=== PATIENT | male | born 1970 | race Caucasian/White ===

== ENCOUNTER 2024-08-20 10:40 | Emergency (ER) | payer SELFPAY ==
[~2024-08-20] VITALS: Ht 162.6 cm; Wt 50.0 kg
[2024-08-20 10:49] VITALS: TEMP 97.9
[2024-08-20 12:46] LABS: BASO # 0.1 K/mm3 (0.0-0.2); BASO % 1.1 % (0.0-2.0); EOS # 0.4 K/mm3 (0.0-0.7); EOS % 4.4 % (0.0-4.0); GRAN # 5.1 K/mm3 (1.4-6.5); GRAN % 56.2 % (42.2-75.2); HEMATOCRIT 47.6 % (42.0-52.0); HEMOGLOBIN 16.8 g/dl (13.5-18.0); LYMPH # 2.9 K/mm3 (1.2-3.4); LYMPH % 32.4 % (20.0-51.0); MEAN CELL VOLUME 93 fl (80.0-100.0); MEAN CORPUSCULAR HEMOGLOBIN 33 pg (27-31); MEAN CORPUSCULAR HGB CONC 35 g/dl (33.0-37.0); MONO # 0.5 K/mm3 (0.1-0.6); MONO % 5.8 % (1.7-9.3); PLATELET COUNT 305 K/mm3 (130-400); RED BLOOD COUNT 5.12 M/mm3 (4.20-5.60); REDCELL DISTRIBUTION WIDTH-CV 12.5 % (11.5-14.5)
[2024-08-20 12:58] LABS: ALANINE AMINOTRANSFERASE 41 U/L (0-55); ALKALINE PHOSPHATASE 110 U/L (40-150); ANION GAP 13 mmol/L (7-16); AST,SGOT 29 U/L (5-34); BLOOD UREA NITROGEN 14 mg/dL (8-26); CALCIUM 9.7 mg/dL (8.4-10.2); CHLORIDE 104 mEq/L (98-107); CREATININE, serum 0.78 mg/dL (0.72-1.25); GLUCOSE 95 mg/dL (70-99); POTASSIUM 4.3 mEq/L (3.5-4.5); SODIUM 141 mEq/L (136-145); TOTAL PROTEIN 7.8 g/dl (6.2-8.1)
[2024-08-20 13:03] LABS: TROPONIN-I < 0.010 ng/mL (0.00-0.033)
[2024-08-20 13:13] LABS: BILIRUBIN,TOTAL 0.5 mg/dL (0.2-1.2)
[2024-08-20] MEDS ORDERED: PROAIR HFA0.09 MG/AC IH (14:07)
[2024-08-20 14:15] VITALS: BP 137/96; PULSE 78
== END 2024-08-20 14:15 | disposition home or self-care (01) ==
LOC: COL.ER 10:40
PROVIDERS: Emergency Medicine
DX: R06.02 Shortness of breath (principal); R53.83 Other fatigue; M79.10 Myalgia, unspecified site; Z86.73 Personal history of transient ischemic attack (TIA), and cerebral infarction without residual deficits

== ENCOUNTER 2024-08-25 12:55 | Emergency (ER) | payer SELFPAY ==
[~2024-08-25] VITALS: Ht 162.6 cm; Wt 59.1 kg
[~2024-08-25 12:55] MED LIST: PROAIR HFA0.09 MG/AC IH
[2024-08-25 13:15] VITALS: TEMP 98.3
[2024-08-25 16:18] LABS: BASO # 0.1 K/mm3 (0.0-0.2); BASO % 1.1 % (0.0-2.0); EOS # 0.4 K/mm3 (0.0-0.7); EOS % 3.9 % (0.0-4.0); GRAN # 5.1 K/mm3 (1.4-6.5); GRAN % 49.3 % (42.2-75.2); HEMATOCRIT 45.2 % (42.0-52.0); HEMOGLOBIN 15.7 g/dl (13.5-18.0); LYMPH # 4.2 K/mm3 (1.2-3.4); LYMPH % 40.9 % (20.0-51.0); MEAN CELL VOLUME 94 fl (80.0-100.0); MEAN CORPUSCULAR HEMOGLOBIN 33 pg (27-31); MEAN CORPUSCULAR HGB CONC 35 g/dl (33.0-37.0); MEAN PLATELET VOLUME 8.6 fl (7.4-10.4); MONO # 0.5 K/mm3 (0.1-0.6); MONO % 4.7 % (1.7-9.3); PLATELET COUNT 304 K/mm3 (130-400); RED BLOOD COUNT 4.81 M/mm3 (4.20-5.60); REDCELL DISTRIBUTION WIDTH-CV 12.4 % (11.5-14.5)
[2024-08-25 16:42] LABS: ALBUMIN 3.9 g/dL (3.5-5.0); BILIRUBIN,TOTAL 0.3 mg/dL (0.2-1.2); CALCIUM 9.3 mg/dL (8.4-10.2); CREATININE, serum 0.77 mg/dL (0.72-1.25); POTASSIUM 3.9 mEq/L (3.5-4.5); TOTAL PROTEIN 7.4 g/dl (6.2-8.1)
[2024-08-25 16:49] LABS: TROPONIN-I 0.012 ng/mL (0.00-0.033)
[2024-08-25] MEDS ORDERED: PROAIR HFA0.09 MG/AC IH (17:38)
[2024-08-25 17:55] VITALS: BP 164/93; PULSE 89
== END 2024-08-25 17:55 | disposition home or self-care (01) ==
LOC: COL.ER 12:55
PROVIDERS: Physician Assistant
DX: J06.9 Acute upper respiratory infection, unspecified (principal); F17.210 Nicotine dependence, cigarettes, uncomplicated

== ENCOUNTER 2024-09-08 17:34 | Emergency (ER) | payer SELFPAY ==
[~2024-09-08] VITALS: Ht 162.6 cm; Wt 59.1 kg
[2024-09-08 17:36] VITALS: TEMP 97.6
[2024-09-08 18:03] VITALS: BP 132/87; PULSE 92
[2024-09-08] MEDS ORDERED: LR 1,000 ML IV ONE (18:15)
[2024-09-08 19:52] LABS: BASO # 0.1 K/mm3 (0.0-0.2); EOS # 0.3 K/mm3 (0.0-0.7); EOS % 3.5 % (0.0-4.0); GRAN # 4.9 K/mm3 (1.4-6.5); GRAN % 55.3 % (42.2-75.2); HEMATOCRIT 45.6 % (42.0-52.0); HEMOGLOBIN 16.4 g/dl (13.5-18.0); LYMPH # 3.2 K/mm3 (1.2-3.4); LYMPH % 36.4 % (20.0-51.0); MEAN CELL VOLUME 91 fl (80.0-100.0); MEAN CORPUSCULAR HEMOGLOBIN 33 pg (27-31); MEAN CORPUSCULAR HGB CONC 36 g/dl (33.0-37.0); MEAN PLATELET VOLUME 11.3 fl (7.4-10.4); MONO # 0.3 K/mm3 (0.1-0.6); MONO % 3.6 % (1.7-9.3); PLATELET COUNT 279 K/mm3 (130-400); RED BLOOD COUNT 5.03 M/mm3 (4.20-5.60); REDCELL DISTRIBUTION WIDTH-CV 12.3 % (11.5-14.5)
[2024-09-08 20:35] LABS: ALBUMIN 3.8 g/dL (3.5-5.0); BILIRUBIN,TOTAL 0.6 mg/dL (0.2-1.2); CALCIUM 8.6 mg/dL (8.4-10.2); CREATININE, serum 0.76 mg/dL (0.72-1.25); POTASSIUM 3.5 mEq/L (3.5-4.5); TOTAL PROTEIN 6.9 g/dl (6.2-8.1)
[2024-09-08 20:40] LABS: MAGNESIUM 1.9 mg/dL (1.6-2.6)
[2024-09-08 20:55] LABS: TROPONIN-I 0.015 ng/mL (0.00-0.033); TSH w REFLEX 1.836 uIU/mL (0.350-4.940)
[2024-09-08] MEDS ORDERED: Acetaminophen 500 MG TAB PO ONE (21:15)
== END 2024-09-08 21:20 | disposition home or self-care (01) ==
LOC: COL.ER 17:34
PROVIDERS: Emergency Medicine
DX: R51.9 Headache, unspecified (principal); R42 Dizziness and giddiness
CPT/HCPCS: J7120